=== PATIENT | male | born 2000 | race Caucasian/White ===

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

== ENCOUNTER 2020-12-26 03:49 | Emergency (ER) | payer OTHER ==
[~2020-12-26] VITALS: Ht 190.5 cm; Wt 109.1 kg
[~2020-12-26 03:49] MED LIST: LISINOPRIL10 MG PO; PROTONIX40 MG PO
[2020-12-26 03:56] VITALS: Ht 190.5 cm; Wt 109.1 kg
[2020-12-26 05:17] VITALS: BP 126/64
== END 2020-12-26 05:17 | disposition home or self-care (01) ==
LOC: D.ER 03:49
DX: R00.2 Palpitations (principal); I10 Essential (primary) hypertension; K21.9 Gastro-esophageal reflux disease without esophagitis; Z72.0 Tobacco use